=== PATIENT | male | born 1965 | race Caucasian/White ===

== ENCOUNTER → 2017-07-02 | Day surgery (SDC) | payer BC ==
[2017-06-19 15:18] VITALS: Ht 179.1 cm; Wt 115.0 kg
[~2017-07-02] VITALS: Ht 179.1 cm; Wt 115.0 kg
[~2017-07-02] MED LIST: ASPI81TA28 PO; ATOR-26 PO; CARV12.52 PO; CARVEDILOL PO; ENDOSCOPIC MARKER 5 ML SYR ONE; LISI5TAB PO; MIDAZOLAM HCL 1 MG/ML 2ML VIAL ONE; MULTTAB58 PO; MUSCLE MILK PO; PROPOFOL IV EMULSION 10 MG/ML 20 ML VIAL IV ONE; SODIUM CHLORIDE 0.9% 500ML 500 ML IV ONE
--- NOTE | 2017-07-02 13:16 | Endo History and Physical ---
History & Physical Date of Service: Jul 02, 2017. Chief Complaint: for screening colonoscopy Referring Physician: History of Present Illness No complaints. Here for screening colonoscopy. Past Medical History CABG Past Surgical History Hx Cardiac Surgery: Yes (CABG X4 VESSELS) Hx Internal Defibrillator: No Hx Pacemaker: No Hx Abdominal Surgery: No Hx of Implantable Prosthesis: No Hx Post-Op Nausea and Vomiting: No Hx Cancer Surgery: No Hx Thoracic Surgery: No Hx Orthopedic: No Hx Urinary Tract Surgery: No Family History None Social History Smoking Status: Former Smoker Hx Substance Use: No Hx Alcohol Use: Yes (OCCASIONAL) Allergies Coded Allergies: No Known Allergies (Unverified , 07/02/17) Current Medications Reported Home Medications Medications Dose Route/Sig Max Daily Dose Days Date Category Multivitamin (Multiple Vitamin) 1 Tab Tab 1 Tab PO DAILY 06/19/17 Reported Aspirin Ec (Aspirin) 81 Mg Tab 81 Mg PO QAM 06/19/17 Reported Lipitor (Atorvastatin Calcium) 80 Mg Tab 80 Mg PO QPM 06/19/17 Reported [Carvedilol] Unknown Strength Unknown Dose PO BID 06/19/17 Reported Prinivil (Lisinopril) 5 Mg Tab 5 Mg PO QAM 06/19/17 Reported Vital Signs Weight (Kilograms): 115 Height (Feet): 5 Height (Inches): 10.5 Review of Systems Respiratory: No shortness of breath Cardiovascular: No chest pain Physical Exam General Appearance: no apparent distress Respiratory/Chest: Respiratory effort: no dyspnea, good air movement Auscultation: breath sounds normal Cardiovascular: Heart Auscultation: RRR Abdomen: Bowel Sounds: normal Inspection & Palpation: soft, non-distended, no tenderness, guarding & rebound, no masses Liver: no hepatomegaly Assessment and Plan No colonoscopy in past. For screening colonoscopy.
--- NOTE | 2017-07-02 14:07 | Discharge Instructions ---
Endoscopy Patient Instructions Date / Procedure(s) Performed Jul 02, 2017. Colonoscopy Allergy Information Coded Allergies: No Known Allergies (Unverified , 07/02/17) Discharge Date / Findings Jul 02, 2017. Four polyps. Three removed with one clipped. Fourth was large polyp biopsied to see if benign then will determine if repeat colonocopy or surgery needed. Medication Instructions Hold ASA for 2 days then restart. Continue other medications. Provider Instructions Activity Restrictions - No exercising or heavy lifting for 24 hours. - Do not drink alcohol the day of the procedure. - Do not drive a car or operate machinery until the day after the procedure. - Do not make any important decisions or sign important papers in 24 hours after the procedure. Following Day: - Return to full activity which may include returning to work/school. Diet Start your diet with liquids and light foods (jello, soup, juice, toast). Then eat your usual diet if not nauseated. Treatment For Common After Affects For mild abdominal pain, bloating, or excessive gas: - Rest - Eat lightly - Lie on right side Go to ER if significant bleeding, fever, abdominal pain. Follow-Up Information Follow-up with DR LYON as scheduled Await pathology and if benign then large polyp will need repeat colonoscopy with endoscopic mucosal resection. Anesthesia Information What You Should Know You have had a procedure that required some medicine to reduce anxiety and discomfort. This treatment is called moderate sedation. After receiving the treatment, you may be sleepy, but you will be able to breathe on your own. The effects of the treatment may last for several hours. Follow these instructions along with Activity/Diet recommendations noted above: * Do NOT do anything where dizziness or clumsiness would be dangerous. * Rest quietly at home today, then you can be up and about tomorrow. * Have a responsible person stay with you the rest of today. * You may have had an I.V. today. If so, you may take the dressing off later today. Recommendations Call your doctor if: * Trouble breathing * Continuous vomiting for more than 24 hours * Temperature above 101 degrees * Severe abdominal pain or bloating * Pain not relieved by pain medicine ordered * There is increased drainage or redness from any incision * A large amount of rectal bleeding greater than 2-3 tablespoons. (If you had a polyp/s removed or have hemorrhoids, a small amount of blood - from the rectum is to be expected.) * You have any unanswered questions or concerns. IN THE EVENT OF A SERIOUS EMERGENCY, GO TO THE NEAREST EMERGENCY ROOM Your discharge instructions were prepared by provider Joel Crook. Patient Instructions Signature Page Lalo Wilcox Patient (or Guardian) Signature/Date: I have read and understand the instructions given to me by my caregivers. Caregiver/RN/Doctor Signature/Date: The above-named patient and/or guardian has received patient instructions on this date. + Original Patient Signature Page (only) stays with chart. Please make copy for patient.
--- NOTE | 2017-07-02 14:14 | Anesthesiology Progress Note ---
Anesthesia Post Op Note Date & Time Jul 02, 2017 at 14:14 Vital Signs Pain Intensity: 0 Vital Signs Past 12 Hours Date Time Temp Pulse Resp B/P (MAP) Pulse Ox O2 Delivery O2 Flow Rate FiO2 07/02/17 14:07 65 16 136/81 (99) 96 Room Air 07/02/17 13:19 37.0 65 16 167/72 (103) 94 Room Air Notes Mental Status: alert / awake / arousable, participated in evaluation Pt Amnestic to Procedure: Yes Nausea / Vomiting: adequately controlled Pain: adequately controlled Airway Patency, RR, SpO2: stable & adequate BP & HR: stable & adequate Hydration State: stable & adequate Anesthetic Complications: no major complications apparent
[2017-07-02 14:37] VITALS: BP 132/90; PULSE 60; O2SAT 98
--- NOTE | 2017-07-02 15:40 | Progress Note ---
Progress Note Date of Service Jul 02, 2017. Progress Note Pt seen in recovery post procedure with no complaints. Went over procedure results with and patient and repeat need for colo versus surgery depending on path. Also to hold ASA for 48 hours.
--- NOTE | 2017-07-03 00:15 | GI REPORT ---
Procedure Date: 07/02/2017 1:17 PM Procedure: Colonoscopy Indications: Screening for colorectal malignant neoplasm Medicines: Monitored Anesthesia Care Complications: No immediate complications. Estimated Blood Loss: Estimated blood loss: 10 mL requiring treatment with placement of hemostatic clip(s). Procedure: Pre-Anesthesia Assessment: - The risks and benefits of the procedure and the sedation options and risks were discussed with the patient. All questions were answered and informed consent was obtained. - Patient identification and proposed procedure were verified prior to the procedure by the physician, the nurse, the operations lieutenant and the fire protection engineering technician. The procedure was verified in the procedure room. After I obtained informed consent, the scope was passed under direct vision. Throughout the procedure, the patient's blood pressure, pulse, and oxygen saturations were monitored continuously. The On-site loaner was introduced through the anus and advanced to the cecum, identified by appendiceal orifice and ileocecal valve. The colonoscopy was performed without difficulty. The patient tolerated the procedure well. The bowel preparation used was SUPREP. Procedure and risks explained to patient which include but not limited to med reaction, bleeding, perforation, aspiration and missed lesions. Judicious gas insufflation and gas removal done on the way out. The lumen always well visualized when advancing the scope. Washes and suctioning used as needed for good visuzlization of mucosa. Prep was good. Retroflexion in the rectum to look at the distal rectum and anal canal done. Findings: A large polyp was found at the hepatic flexure. The polyp was sessile. Biopsies were taken with a cold forceps for histology. Estimated blood loss was minimal. Area to side was tattooed with an injection of Spot (carbon black). A 6 mm polyp was found in the transverse colon. The polyp was sessile. The polyp was removed with a saline injection-lift technique using a cold snare. Resection and retrieval were complete. Estimated blood loss was minimal. A 5 mm polyp was found at 60 cm proximal to the anus. The polyp was sessile. The polyp was removed with a lift and cut technique using a hot snare. Resection and retrieval were complete. Estimated blood loss was minimal. A 8 mm polyp was found in the rectum. The polyp was sessile. The polyp was removed with a cold snare. Resection and retrieval were complete. Estimated blood loss: 10 mL requiring treatment with placement of 3 hemostatic clip(s with resolution of bleeding. Multiple small and large-mouthed diverticula were found in the sigmoid colon. The exam was otherwise without abnormality on direct and retroflexion views. Impression: - One large polyp at the hepatic flexure. Biopsied. Tattooed. - One 6 mm polyp in the transverse colon, removed using injection-lift and a cold snare. Resected and retrieved. - One 5 mm polyp at 60 cm proximal to the anus, removed using lift and cut and a hot snare. Resected and retrieved. - One 8 mm polyp in the rectum, removed with a cold snare. Resected and retrieved. - Diverticulosis in the sigmoid colon. - The examination was otherwise normal on direct and retroflexion views. Recommendation: - Discharge patient to home (ambulatory). - Await pathology results. - If path benign will need endoscopic mucosal resection of the hepatic flexure polyp. Joel Crook M.D. Joel Crook MD 07/02/2017 2:15:43 PM This report has been signed electronically. Note Initiated On: 07/02/2017 1:17 PM I attest to the content of the Intraoperative Record and orders documented therein, exceptions below
== END | disposition home or self-care (01) ==
LOC: C.GI 12:23
PROVIDERS: ATTEND Internal Medicine Gastroenterology
DX: Z12.11 Encounter for screening for malignant neoplasm of colon (principal); D12.3 Benign neoplasm of transverse colon; D12.9 Benign neoplasm of anus and anal canal; D12.8 Benign neoplasm of rectum; K57.30 Diverticulosis of large intestine without perforation or abscess without bleeding

== ENCOUNTER → 2017-08-25 | Day surgery (SDC) | payer BC ==
[2017-08-12 13:11] VITALS: Ht 179.1 cm; Wt 112.7 kg
[~2017-08-25] VITALS: Ht 179.1 cm; Wt 112.7 kg
[~2017-08-25] MED LIST changes: +ATROPINE SULFATE 0.1 MG/ML 5ML SYR IV PRN; -CARVEDILOL PO; -ENDOSCOPIC MARKER 5 ML SYR ONE; +EpHEDrine SULFATE INJ 50 MG/ML AMP IV PRN; +FENTANYL CITRATE INJ 50 MCG/1 ML 2 ML VIAL ONE; +LIDOCAINE HCL 2% 2 ML VIAL (20MG/ML) ONE; +METHYLENE BLUE 0.5% 10 ML VIAL ONE
--- NOTE | 2017-08-25 14:45 | Endo History and Physical ---
History & Physical Date of Service: Aug 25, 2017. Chief Complaint: Colon polyps with EMR Referring Physician: Dr. Og Jones History of Present Illness hepatic flex polyp for EMR Past Medical History CABG Past Surgical History Hx Cardiac Surgery: Yes (CABG X4 VESSELS) Hx Internal Defibrillator: No Hx Pacemaker: No Hx Abdominal Surgery: No Hx of Implantable Prosthesis: No Hx Post-Op Nausea and Vomiting: No Hx Cancer Surgery: No Hx Thoracic Surgery: No Hx Orthopedic: No Hx Urinary Tract Surgery: No Family History None Social History Smoking Status: Former Smoker Hx Substance Use: No Hx Alcohol Use: Yes (OCCASIONAL) Allergies Coded Allergies: No Known Allergies (Verified , 08/25/17) Current Medications Reported Home Medications Medications Dose Route/Sig Max Daily Dose Days Date Category Coreg (Carvedilol) 12.5 Mg Tab 12.5 Mg PO BID 08/12/17 Reported [Muscle Milk] 1 Dose PO DIRECTED PRN 08/12/17 Reported Multivitamin (Multiple Vitamin) 1 Tab Tab 1 Tab PO DAILY 06/19/17 Reported Aspirin Ec (Aspirin) 81 Mg Tab 81 Mg PO QAM 06/19/17 Reported Lipitor (Atorvastatin Calcium) 80 Mg Tab 80 Mg PO QPM 06/19/17 Reported Prinivil (Lisinopril) 5 Mg Tab 5 Mg PO QAM 06/19/17 Reported Vital Signs Weight (Kilograms): 112.73 Height (Feet): 5 Height (Inches): 10.5 Date Time Temp Pulse Resp B/P (MAP) Pulse Ox O2 Delivery O2 Flow Rate FiO2 08/25/17 14:30 36.4 62 18 113/79 (90) 96 Room Air Physical Exam General Appearance: WD/WN, no apparent distress Respiratory/Chest: Auscultation: breath sounds normal Cardiovascular: Heart Auscultation: RRR Abdomen: Bowel Sounds: normal Inspection & Palpation: soft, non-distended, no tenderness, guarding & rebound Assessment and Plan colonoscopy with EMR for polyp removal
--- NOTE | 2017-08-25 15:58 | Discharge Instructions ---
Endoscopy Patient Instructions Date / Procedure(s) Performed Aug 25, 2017. Colonoscopy Allergy Information Coded Allergies: No Known Allergies (Verified , 08/25/17) Discharge Date / Findings Aug 25, 2017. polyps removed by EMR Medication Instructions Stopped Medication(s): Patient was told to take his bp meds this am. Restart Stopped Medication(s): Reported Home Medications Medications Dose Route/Sig Max Daily Dose Days Date Category Coreg (Carvedilol) 12.5 Mg Tab 12.5 Mg PO BID 08/12/17 Reported [Muscle Milk] 1 Dose PO DIRECTED PRN 08/12/17 Reported Multivitamin (Multiple Vitamin) 1 Tab Tab 1 Tab PO DAILY 06/19/17 Reported Aspirin Ec (Aspirin) 81 Mg Tab 81 Mg PO QAM 06/19/17 Reported Lipitor (Atorvastatin Calcium) 80 Mg Tab 80 Mg PO QPM 06/19/17 Reported Prinivil (Lisinopril) 5 Mg Tab 5 Mg PO QAM 06/19/17 Reported Reported Home Medications Medications Dose Route/Sig Max Daily Dose Days Date Category Coreg (Carvedilol) 12.5 Mg Tab 12.5 Mg PO BID 08/12/17 Reported [Muscle Milk] 1 Dose PO DIRECTED PRN 08/12/17 Reported Multivitamin (Multiple Vitamin) 1 Tab Tab 1 Tab PO DAILY 06/19/17 Reported Aspirin Ec (Aspirin) 81 Mg Tab 81 Mg PO QAM 06/19/17 Reported Lipitor (Atorvastatin Calcium) 80 Mg Tab 80 Mg PO QPM 06/19/17 Reported Prinivil (Lisinopril) 5 Mg Tab 5 Mg PO QAM 06/19/17 Reported Provider Instructions Activity Restrictions - No exercising or heavy lifting for 24 hours. - Do not drink alcohol the day of the procedure. - Do not drive a car or operate machinery until the day after the procedure. - Do not make any important decisions or sign important papers in 24 hours after the procedure. Following Day: - Return to full activity which may include returning to work/school. Diet Start your diet with liquids and light foods (jello, soup, juice, toast). Then eat your usual diet if not nauseated. Treatment For Common After Affects For mild abdominal pain, bloating, or excessive gas: - Rest - Eat lightly - Lie on right side Follow-Up Information Follow-up with Dr. Og Jones as scheduled Anesthesia Information What You Should Know You have had a procedure that required some medicine to reduce anxiety and discomfort. This treatment is called moderate sedation. After receiving the treatment, you may be sleepy, but you will be able to breathe on your own. The effects of the treatment may last for several hours. Follow these instructions along with Activity/Diet recommendations noted above: * Do NOT do anything where dizziness or clumsiness would be dangerous. * Rest quietly at home today, then you can be up and about tomorrow. * Have a responsible person stay with you the rest of today. * You may have had an I.V. today. If so, you may take the dressing off later today. Recommendations Call your doctor if: * Trouble breathing * Continuous vomiting for more than 24 hours * Temperature above 101 degrees * Severe abdominal pain or bloating * Pain not relieved by pain medicine ordered * There is increased drainage or redness from any incision * A large amount of rectal bleeding greater than 2-3 tablespoons. (If you had a polyp/s removed or have hemorrhoids, a small amount of blood - from the rectum is to be expected.) * You have any unanswered questions or concerns. IN THE EVENT OF A SERIOUS EMERGENCY, GO TO THE NEAREST EMERGENCY ROOM Your discharge instructions were prepared by provider Mario Agrawal. Patient Instructions Signature Page Lalo Short Patient (or Guardian) Signature/Date: I have read and understand the instructions given to me by my caregivers. Caregiver/RN/Doctor Signature/Date: The above-named patient and/or guardian has received patient instructions on this date. + Original Patient Signature Page (only) stays with chart. Please make copy for patient.
--- NOTE | 2017-08-25 16:05 | Anesthesiology Progress Note ---
Anesthesia Post Op Note Date & Time Aug 25, 2017 at 16:05 Vital Signs Pain Intensity: 0 Vital Signs Past 12 Hours Date Time Temp Pulse Resp B/P (MAP) Pulse Ox O2 Delivery O2 Flow Rate FiO2 08/25/17 14:30 36.4 62 18 113/79 (90) 96 Room Air Notes Mental Status: alert / awake / arousable, participated in evaluation Pt Amnestic to Procedure: Yes Nausea / Vomiting: adequately controlled Pain: adequately controlled Airway Patency, RR, SpO2: stable & adequate BP & HR: stable & adequate Hydration State: stable & adequate Anesthetic Complications: no major complications apparent
--- NOTE | 2017-08-25 16:12 | GI REPORT ---
Procedure Date: 08/25/2017 2:28 PM Procedure: Colonoscopy Indications: Therapeutic procedure for colon polyps Medicines: Propofol per Anesthesia Complications: No immediate complications. Estimated blood loss: None. Estimated Blood Loss: Estimated blood loss: none. Procedure: Pre-Anesthesia Assessment: - Prior to the procedure, a History and Physical was performed, and patient medications and allergies were reviewed. The patient's tolerance of previous anesthesia was also reviewed. The risks and benefits of the procedure and the sedation options and risks were discussed with the patient. All questions were answered, and informed consent was obtained. Prior Anticoagulants: The patient has taken no previous anticoagulant or antiplatelet agents. ASA Grade Assessment: II - A patient with mild systemic disease. After reviewing the risks and benefits, the patient was deemed in satisfactory condition to undergo the procedure. After I obtained informed consent, the scope was passed under direct vision. Throughout the procedure, the patient's blood pressure, pulse, and oxygen saturations were monitored continuously. The scope was introduced through the anus and advanced to the terminal ileum, with identification of the appendiceal orifice and IC valve. The colonoscopy was performed without difficulty. The patient tolerated the procedure well. The quality of the bowel preparation was good. Findings: The perianal and digital rectal examinations were normal. Pertinent negatives include normal sphincter tone, no palpable rectal lesions and no anal lesion or abnormality was detected. A 25 mm polyp was found at the hepatic flexure. The polyp was sessile. Area was successfully injected with 35 ml saline with methylene blue for a lift polypectomy. The polyp was removed with a piecemeal technique using a hot snare. Resection and retrieval were complete. To prevent bleeding after mucosal resection, five hemostatic clips were successfully placed (MR conditional). There was no bleeding during, and at the end, of the procedure. A 10 mm polyp was found at the hepatic flexure. The polyp was sessile. Area was successfully injected with 5 mL saline with methylene blue for a lift polypectomy. The polyp was removed with a hot snare. Resection and retrieval were complete. Verification of patient identification for the specimen was done by the physician and certification technician using the patient's name and medical record number. A foreign body was found in the rectum. The retroflexed view of the distal rectum and anal verge was normal and showed no anal or rectal abnormalities. The exam was otherwise without abnormality. Impression: - One 25 mm polyp at the hepatic flexure, removed piecemeal using a hot snare. Resected and retrieved. Injected. Clips (MR conditional) were placed. - One 10 mm polyp at the hepatic flexure, removed with a hot snare. Resected and retrieved. Injected. - Foreign body in the rectum. - The distal rectum and anal verge are normal on retroflexion view. - The examination was otherwise normal. Recommendation: - Discharge patient to home (ambulatory). - Resume regular diet. - Continue present medications. - Await pathology results. - Repeat colonoscopy in 4-6 months depending on path for surveillance based on pathology results. MD Mario Rivas MD 08/25/2017 4:11:39 PM This report has been signed electronically. Note Initiated On: 08/25/2017 2:28 PM I attest to the content of the Intraoperative Record and orders documented therein, exceptions below
[2017-08-25 16:28] VITALS: BP 132/94; PULSE 58; O2SAT 100
== END | disposition home or self-care (01) ==
LOC: C.GI 14:04
PROVIDERS: ATTEND Internal Medicine Gastroenterology
DX: D12.3 Benign neoplasm of transverse colon (principal); T18.5XXA Foreign body in anus and rectum, initial encounter; X58.XXXA Exposure to other specified factors, initial encounter; I25.10 Atherosclerotic heart disease of native coronary artery without angina pectoris; Z95.1 Presence of aortocoronary bypass graft; Z87.891 Personal history of nicotine dependence; Z79.82 Long term (current) use of aspirin; Z79.899 Other long term (current) drug therapy

== ENCOUNTER 2022-12-19 14:52 | Inpatient (IN) ==
--- NOTE | 2022-12-19 15:36 | XRay Report ---
XR chest 2V PA/lateral HISTORY: 57 years-old Male Chest pain, nonspecific acute chest pain COMPARISON: None TECHNIQUE: PA and lateral views of the chest FINDINGS: Cardiac silhouette is enlarged. Prior median sternotomy. No pneumothorax, large pleural effusion or o vert pulmonary edema. Mild blunting of the costophrenic angles. Hyperinflation with diaphragmatic fla ttening. Degenerative changes of the shoulders and spine. IMPRESSION: Cardiomegaly without acute process. ACT 112: Negative or not required by law. The above report was generated using voice recognition software. It may contain grammatical, syntax o r spelling errors. Electronically signed by: Mu Olivera M.D. 12/19/2022 3:34 PM
[2022-12-19] MEDS ORDERED: SODIUM CHLORIDE 0.9% 500 ML IV ONE (16:01)
[2022-12-19 16:29] LABS: Basophils # (auto) 0.04 K/uL (0-0.2); Basophils % (auto) 0.5 %; Eosinophils # (auto) 0.18 K/uL (0-0.50); Eosinophils % (auto) 2.4 %; Hemoglobin 14.8 g/dl (14.0-18.0); Immature Granulocytes # (auto) 0.02 K/uL (0.01-0.20); Immature Granulocytes % (auto) 0.3 %; Lymphocytes # (auto) 2.27 K/uL (1.2-3.4); Lymphocytes % (auto) 30.3 %; Mean Corpuscular Hgb Conc 35.2 g/dL (32.0-36.0); Mean Corpuscular Volume 85.2 fL (80.0-100.0); Mean Platelet Volume 10.1 fL (9.4-12.4); Monocytes # (auto) 0.77 K/uL (0.11-0.59); Monocytes % (auto) 10.3 %; Neutrophils # (auto) 4.22 K/uL (1.40-6.50); Neutrophils % (auto) 56.2 %; Platelet Count 189 K/uL (130-400); RDW Coefficient of Variation 13.5 % (11.5-14.5); RDW Standard Deviation 41.3 fL (36.4-46.3); Red Blood Count 4.93 M/uL (4.70-6.10)
[2022-12-19 16:35] LABS: Alanine Aminotransferase 18 U/L (7-52); Albumin Globulin Ratio 1.3 (0.9-2); Albumin Level 4.3 gm/dl (3.4-5.0); Alkaline Phosphatase 88 U/L (34-104); Anion Gap 5 (3-11); Aspartate Aminotransferase 19 U/L (13-39); BUN Creatinine Ratio 18.3 (10-20); Bilirubin,Total 0.7 mg/dl (0.2-1.0); Blood Urea Nitrogen 24 mg/dl (6-23); Calcium 9.4 mg/dl (8.5-10.1); Carbon Dioxide 28 mmol/L (21-32); Chloride 105 mmol/L (98-107); Est GFR (Non-African American) 60.4 ml/min; Globulin 3.4 gm/dl (2.5-4.0); Glucose 108 mg/dl (70-99(Fasting)); Magnesium 2.2 mg/dl (1.7-2.4); Phosphorus 4.2 mg/dl (2.5-4.9); Potassium 4.5 mmol/L (3.5-5.1); Sodium 138 mmol/L (136-145); Total Protein 7.7 gm/dl (6.0-8.3)
[2022-12-19 16:42] LABS: Troponin I High Sensitivity 25.4 pg/ml (0-20)
[2022-12-19 16:44] LABS: Partial Thromboplastin Ratio 0.9; Partial Thromboplastin Time 26.1 Seconds (21.0-31.0); Prothrombin Time 10.7 Seconds (9.0-12.0)
[2022-12-19] MEDS ORDERED: OPTIRAY 320 500ml IV ONE (17:12)
--- NOTE | 2022-12-19 17:47 | CT Scan Report ---
CHEST CTA for PULMONARY ARTERIES CT DOSE: 675.60 mGycm HISTORY: right sided cp, r/o PE TECHNIQUE: Multiaxial CT images of the chest were performed following the intravenous administration of contrast to evaluate the pulmonary arteries. Maximal intensity projection images were also obtaine d. A dose lowering technique was utilized adhering to the principles of ALARA. COMPARISON STUDY: None. FINDINGS: Limited views of the upper abdomen demonstrate a normal liver and spleen. No mediastinal or hilar lymphadenopathy. No pleural or pericardial effusions. The heart is mildly enlarged. Normal eso phagus. Normal caliber thoracic aorta with no evidence for a dissection. No filling defects within th e pulmonary arteries to suggest a pulmonary embolus. There are poststernotomy changes. No acute fract ures identified. No pneumothorax. The central airways are patent. Calcified left hilar lymph node is noted. Peripheral scarlike densities are noted within the right lung base. Tiny subpleural nodular de nsities along the right major fissure are likely benign. No suspicious pulmonary nodules identified. No focal lung consolidations to suggest a pneumonia. IMPRESSION: 1. No evidence for a pulmonary embolus. 2. No focal lung consolidations to suggest a pneumonia. 3. Peripheral scarlike densities seen within the right lung base. ACT 112: Negative or not required by law. Electronically signed by: Micah Chappell M.D. 12/19/2022 5:45 PM
[2022-12-19] MEDS ORDERED: METOPROLOL TARTRATE 1 MG/ML VIAL IV STA ×3 (18:33→19:10)
--- NOTE | 2022-12-19 18:59 | History & Physical Report ---
Date of Service December 19, 2022 Assessment & Plan (1) Atrial flutter with rapid ventricular response: Plan: Possible exacerbated due to food poisoning illness over the weekend which appears to have self resolved No significant improvement after metoprolol 5 mg IV x3 We will increase his usual carvedilol to 12.5 mg p.o. twice daily Start diltiazem IV drip with 20 mg IV bolus [id number] - 3, start heparin IV drip TTE TSH Consult cardiology, NPO after midnight in case he requires EVELYN cardioversion We will see if his chest pain is due to this however certainly has musculoskeletal elements to this in addition (2) Cubital tunnel syndrome of both upper extremities: Plan: Very well-defined ulnar distribution nerve entrapment at his elbow described by the patient If resolves with rate controlling his atrial flutter perhaps it is due to this however if does not resolve recommend nerve conduction studies as an outpatient (3) Coronary artery disease: Plan: s/p CABG Continue aspirin, carvedilol, lisinopril, atorvastatin (4) Hypertension: Plan: Continue carvedilol at increased dose as above, lisinopril 10 mg p.o. daily Lasix as above Diltiazem as above (5) Sleep apnea: Plan: CPAP HS (6) Hx of psoriasis: Plan: Managed with Skyrizi (7) Hyperlipidemia: Plan: Continue atorvastatin Plan VTE Prophylaxis - heparin IV Diet - heart healthy Disposition - admit to PCU Admission and Anticipated Discharge Date Admission Date: December 19, 2022 History of Present Illness Chief Complaint: Shortness of breath Primary Care Provider: Rupinder Knowles Lalo Wilcox is a 57 year old male with coronary artery disease with history of CABG who presents to the ER with 3 week history of intermittent right-sided chest pain. He reports his chest pain started 3 weeks ago lasting for the entire day but better the following day, no worse on exertion, worse on certain movements. It has occurred intermittently 4 or 5 times since then, again lasting for hours. Characteristic of occasional spasms. No diaphoresis or nausea. He reports associated shortness of breath over the last 3 weeks although also notes worsening shortness of breath on exertion over the last year especially while walking upstairs. He also notes an odd sensation of neck swelling and having a hard time breathing over the weekend with associated arm numbness. This improved after a couple of hours and he managed to go to sleep and believes it brought on by food he had eaten previous that day. This sensation has now completely resolved. He also describes bilateral tingling in both extremities and a ulnar nerve distal to his elbow. Never had this sensation before but also appears to be separate from recent chest pain. His convinced him to go to his PCP office today and EKG in the office was concerning for sinus tachycardia with PVCs and possible STEMI therefore he was sent to the ER. In the ER EKG and telemetry is more consistent with an atrial flutter. He was given x1 dose of metoprolol 5 mg IV prior to being seen without significant improvement in his heart rate. Allergies Allergy/AdvReac Type Severity Reaction Status Date / Time No Known Allergies Allergy Verified 12/19/22 18:01 Home Medications Medication Instructions Recorded Confirmed Type aspirin 81 mg tablet 81 mg PO QAM 11/14/22 12/19/22 History atorvastatin 80 mg tablet 80 mg PO HS 11/14/22 12/19/22 History betamethasone dipropionate 0.05 % 1 applic topical UD PRN psoriasis 11/14/22 12/19/22 History topical ointment carvedilol 6.25 mg tablet 6.25 mg PO BID 11/14/22 12/19/22 History lisinopril 10 mg tablet 10 mg PO QAM 11/14/22 12/19/22 History mupirocin 2 % topical ointment 1 applic topical UD PRN psoriasis 11/14/22 12/19/22 History risankizumab-rzaa 150 mg/mL 150 mg subcut Q90D 11/14/22 12/19/22 History subcutaneous syringe (Skyrizi) ascorbic acid (vitamin C) 100 mg 100 mg PO 3XWK 12/19/22 12/19/22 History tablet furosemide 20 mg tablet 20 mg PO DAILY PRN Shortness Of 12/19/22 12/19/22 History Breath multivitamin 1 tab PO DAILY 12/19/22 12/19/22 History zinc gluconate 100 mg tablet 100 mg PO DAILY 12/19/22 12/19/22 History Past Med/Surg History Medical History (Updated 12/19/22 @ 22:52 by Bernard Martinez MD) Hx of psoriasis Hyperlipidemia Hypertension Myocardial Infarction 9 years ago, taken to hospital in [place]; f/u dr cunningham, [facility] Sleep apnea cpap Surgical History Hx of CABG 9 years ago, quadruple bypass, [place] near the [facility]; f/u marcial whaley Hx of colonoscopy Social History Smoking Status: Former smoker Second Hand Exposure: No; Do You Dip or Chew Tobacco: No; Hx Alcohol Use: Yes Alcohol type: beer Hx Substance Use: No Preferred Language: Macanese Communication Ability: Effective Manufacturing Manager Required: No Beliefs That Will Affect Care: None Current Living Situation: Spouse Other Information That Helps Us Care for You: No Feels Safe at Home: Yes Safety Concerns: Feels Safe At This Time Assistive Devices: Glasses Review of Systems Review of Systems: All systems reviewed & are unremarkable except as noted in HPI & below 2 days ago having diarrhea, lasted for 2 days, 4-5 times a day, watery. Tu-Fri. Resolved today. Physical Exam Constitutional: WD/WN, vitals as above Respiratory: normal respiratory effort, lungs clear to auscultation Cardiovascular: Rate/Rhythm: regular rhythm and + tachycardic Heart Sounds: no murmur Extremities: normal capillary refill and + pedal edema (1+ b/l edema); no calf tenderness Gastrointestinal (Abdomen): normal bowel sounds, soft, nontender, no hepatosplenomegaly Skin: no rashes, warm and dry Neurologic: moves all extremities and awake; not confused Motor/Sensory: + sensory deficit (Mild bilateral ulnar distribution numbness from the wrist) Psychiatric: A+Ox3, euthymic affect Results & Data Results & Data ([facility]) Vital Signs (Past 12 Hours) Vital Signs Temp Pulse Pulse Resp BP BP Pulse Ox 12/19/22 18:00 143 H 20 178/117 H 96 12/19/22 15:05 96 12/19/22 18:39 132 H 178/117 H 12/19/22 16:47 141 H 20 159/124 H 96 12/19/22 16:47 12/19/22 14:58 36.3 C L 92 H 20 135/102 H 96 O2 Del Method 12/19/22 18:00 Room Air 12/19/22 15:05 Room Air 12/19/22 18:39 12/19/22 16:47 Room Air 12/19/22 16:47 Room Air 12/19/22 14:58 Room Air Laboratory Results Abnormal lab results 12/19/22 12/19/22 12/19/22 Range/Units 15:46 15:46 15:46 [place] # (Auto) 0.77 H (0.11-0.59) K/uL BUN 24 H (6-23) mg/dl Glucose 108 H (70-99(Fasting)) mg/dl Troponin I High Sens 25.4 H (0-20) pg/ml B-Natriuretic Peptide 472 H (0-100) pg/ml Diagnostic Findings XR chest 2V PA/lateral HISTORY: 57 years-old Male Chest pain, nonspecific acute chest pain COMPARISON: None TECHNIQUE: PA and lateral views of the chest FINDINGS: Cardiac silhouette is enlarged. Prior median sternotomy. No pneumothorax, large pleural effusion or overt pulmonary edema. Mild blunting of the costophrenic angles. Hyperinflation with diaphragmatic flattening. Degenerative changes of the shoulders and spine. IMPRESSION: Cardiomegaly without acute process. CHEST CTA for PULMONARY ARTERIES CT DOSE: 675.60 mGycm HISTORY: right sided cp, r/o PE TECHNIQUE: Multiaxial CT images of the chest were performed following the intravenous administration of contrast to evaluate the pulmonary arteries. Maximal intensity projection images were also obtained. A dose lowering technique was utilized adhering to the principles of ALARA. COMPARISON STUDY: None. FINDINGS: Limited views of the upper abdomen demonstrate a normal liver and spleen. No mediastinal or hilar lymphadenopathy. No pleural or pericardial effusions. The heart is mildly enlarged. Normal esophagus. Normal caliber thoracic aorta with no evidence for a dissection. No filling defects within the pulmonary arteries to suggest a pulmonary embolus. There are poststernotomy changes. No acute fractures identified. No pneumothorax. The central airways are patent. Calcified left hilar lymph node is noted. Peripheral scarlike densities are noted within the right lung base. Tiny subpleural nodular densities along the right major fissure are likely benign. No suspicious pulmonary nodules identified. No focal lung consolidations to suggest a pneumonia. IMPRESSION: 1. No evidence for a pulmonary embolus. 2. No focal lung consolidations to suggest a pneumonia. 3. Peripheral scarlike densities seen within the right lung base. Medications Administered ER medications given: Metoprolol 5 mg IV x2 Normal saline 500 mL bolus ECG Indication: SOB/dyspnea Rate (beats per minute): 148 Rhythm: atrial flutter Findings: + RBBB (Incomplete) Comparison ECG Date: no prior available Code Status & VTE Plan Code Status Full VTE Prophylaxis Plan VTE Prophylaxis will be ordered: Yes PG Care Time/CCT Total # of Minutes Spent Total Time Spent with Patient: Total time spent is greater than 50% in coordination of care (as documented) at patient's floor/unit and/or counseling patient: Coding Level of Care Code 73328 INT INP/OBS CARE 3/75MIN Diagnoses Atrial flutter with rapid ventricular response I48.92 Cubital tunnel syndrome of both upper extremities G56.23 Coronary artery disease I25.10 Hypertension I10 Sleep apnea G47.30 Hx of psoriasis Z87.2 Hyperlipidemia E78.5
--- NOTE | 2022-12-19 19:17 | Emergency Department Note ---
Impression & Plan Atrial flutter with rapid ventricular response, New onset atrial flutter, Elevated troponin, Coronary artery disease, Hypertension ED Provider Note NAME: PIPO LASSITER AGE: 57 SEX: M ARRIVES VIA: Walk-In INFORMANT: Patient ED PROVIDER(S): Jun Hopper MD CHIEF COMPLAINT: Palpitations, referred. PLAN: Disposition: Admit MEDICAL DECISION MAKING: The patient is a pleasant 57-year-old gentleman with a past medical history of CAD with history of an [place] remotely, hypertension, hyperlipidemia who presents to the emergency department, by his via walk-in, referred from his PCPs office for evaluation of ongoing shortness of breath , Intermittent palpitations, tingling in his hands and episode of right-sided rib pain last week. The patient reports he is significantly active as he works at [employer] and frequently performs heavy lifting. He denies having pattern of chest pain with exertion. He reports he sometimes feels short of breath with exertion. He reports a couple of days ago he had an episode where he suddenly felt palpitations and lightheadedness that resolved after approximately 20 minutes. He denies any recent fevers, chills, cough congestion, GI or symptoms. EKG demonstrates suspected atrial flutter in the 140s with right bundle branch block and intermittent PVC no overt ST elevation or depression. Chest x-ray negative for acute cardiopulmonary process. WBC, H/H and platelets within normal limits. Chemistry without metabolic acidosis. Electrolytes LFTs without significant abnormality. High-sensitivity troponin 25.4 and BNP 470, nonspecific and likely related to the patient's tachycardia and suspected new diagnosis of atrial flutter. CTA of the chest was performed and was negative for PE or acute process otherwise. COVID-19, RNA, NAAT test was negative. Upon evaluation the patient's heart rate was unchanged following 500 cc of normal saline. Repeat EKGs were performed and further demonstrates atrial flutter with variable AV block. Given the patient's symptoms, history of CAD with new onset a flutter they did agree with plan for admission for further management. IV Lopressor ordered for further rate control. Decision for anticoagulation per admitting team. Case was d/w Dr. Martinez, [facility] hospitalist who will evaluate the patient for admission. Triage Nursing notes reviewed and agree them. Prior/outside medical records reviewed Vital Signs: reviewed Differential diagnosis: Premature contractions, electrolyte abnormality, cardiac dysrhythmia, thyroid dysfunction, pulmonary embolism, infection, gastrointestinal, as well as other pathologies. ER treatment provided: See below. Diagnostics interpreted by me: ECG: Atrial flutter with rapid ventricular response, 148 bpm, PVCs. Incomplete right bundle branch block, nonspecific ST and T wave abnormality, no overt ST elevation or depression, QTc 379, QRS 98. Cardiac Monitoring: An order for continuous cardiac monitoring was placed and demonstrated Atrial flutter with rapid ventricular response, 148 bpm, PVCs. Laboratory studies: See below Imaging studies: See below Consultation(s): Case was d/w Dr. Martinez, [facility] hospitalist who will evaluate the patient for admission. HPI: The patient is a pleasant 57-year-old gentleman with a past medical history of CAD with history of an NJ remotely, hypertension, hyperlipidemia who presents to the emergency department, by his via walk-in, referred from his PCPs office for evaluation of ongoing shortness of breath , Intermittent palpitations, tingling in his hands and episode of right-sided rib pain last we ek. The patient reports he is significantly active as he works at [employer] and frequently performs heavy lifting. He denies having pattern of chest pain with exertion. He reports he sometimes feels short of breath with exertion. He reports a couple of days ago he had an episode where he suddenly felt palpitations and lightheadedness that resolved after approximately 20 minutes. He denies any recent fevers, chills, cough congestion, GI or symptoms. ROS: See above HPI for pertinent positives & negatives. A total of 10 systems reviewed and were otherwise negative. VITALS:See Below PHYSICAL EXAMINATION: GENERAL: Awake, alert, well-appearing, in no distress, BMI 46. HENT: Normocephalic, atraumatic. Oropharynx unremarkable. EYES: Normal conjunctiva. Sclera non-icteric. NECK: Supple. No nuchal rigidity. FROM. No JVD. RESPIRATORY: Clear to auscultation. CARDIAC: Tachycardic rate, irregulgar rhythm. Extremities warm and well perfused. Pulses equal. ABDOMEN: Soft, non-distended. No tenderness to palpation. No rebound or guarding. No masses. RECTAL: Deferred. MUSCULOSKELETAL: Chest examination reveals no tenderness. The back is symmetrical on inspection without obvious abnormality. There is no CVA tende rness to palpation. No joint edema. LOWER EXTREMITIES: Calves are equal size bilaterally and non-tender. No edema. No discoloration. NEURO: Normal sensorium. No sensory or motor deficits noted. SKIN: No rash or jaundice noted. ED COURSE: Critical Care: I have personally spent greater than 35 minutes of critical care time in the direct management of this patient. This includes bedside care, interpretation of diagnostic studies, and testing, discussion with consultants, patient, and family members, and other required patient management activities. This 35 minutes is in excess of all separately billable procedures. Jun Hopper MD Past Med/Surg History Medical History (Updated 12/19/22 @ 19:38 by Bernard Martinez MD) Hx of psoriasis Hyperlipidemia Hypertension Myocardial Infarction 9 years ago, taken to hospital in [place]; f/u dr cunningham, [facility] Sleep apnea cpap Surgical History Hx of CABG 9 years ago, quadruple bypass, OR near the [facility]; f/u dr cunningham, [facility] Hx of colonoscopy Social History Smoking Status: Former smoker Second Hand Exposure: Yes; Hx Alcohol Use: Yes Alcohol type: beer Hx Substance Use: No Preferred Language: Icelandic Communication Ability: Effective Vessel Engineer Required: No Beliefs That Will Affect Care: None Current Living Situation: Spouse Feels Safe at Home: Yes Assistive Devices: CPAP and Glasses Allergies Allergies Allergy/AdvReac Type Severity Reaction Status Date / Time No Known Allergies Allergy Verified 12/19/22 18:01 Home Meds Home Medications Medication Instructions Recorded Confirmed aspirin 81 mg tablet 81 mg PO QAM 11/14/22 12/19/22 atorvastatin 80 mg tablet 80 mg PO HS 11/14/22 12/19/22 betamethasone dipropionate 0.05 % 1 applic topical UD PRN psoriasis 11/14/22 12/19/22 topical ointment carvedilol 6.25 mg tablet 6.25 mg PO BID 11/14/22 12/19/22 lisinopril 10 mg tablet 10 mg PO QAM 11/14/22 12/19/22 mupirocin 2 % topical ointment 1 applic topical UD PRN psoriasis 11/14/22 12/19/22 risankizumab-rzaa 150 mg/mL 150 mg subcut Q90D 11/14/22 12/19/22 subcutaneous syringe (Skyrizi) ascorbic acid (vitamin C) 100 mg 100 mg PO 3XWK 12/19/22 12/19/22 tablet furosemide 20 mg tablet 20 mg PO DAILY PRN Shortness Of 12/19/22 12/19/22 Breath multivitamin 1 tab PO DAILY 12/19/22 12/19/22 zinc gluconate 100 mg tablet 100 mg PO DAILY 12/19/22 12/19/22 Results & Data (ED) Vital Signs Vital Signs - 24 hr 12/19/22 14:58 12/19/22 16:47 12/19/22 16:47 Temperature 36.3 C L Temperature Source Temporal Artery Scan Pulse Rate 92 H Pulse Rate [Apical] 141 H Pulse Rhythm [Apical] Regular Pulse Strength [Apical] Normal Respiratory Rate 20 20 Respiratory Effort / Characteristics Non-Labored Respiratory Depth Normal Normal Respiratory Pattern Regular Blood Pressure 135/102 H Blood Pressure [Right Arm] 159/124 H Blood Pressure Mean 113 Blood Pressure Mean [Right Arm] 135 Blood Pressure Position Sitting Blood Pressure Position [Right Arm] Lying Pulse Oximetry 96 96 Oxygen Delivery Method Room Air Room Air Room Air Sepsis Recent Fever Within 48 Hours No Sepsis New/Unexplained Change in Mental Status No Sepsis Action Taken by Nursing No Action Required 12/19/22 18:39 12/19/22 15:05 12/19/22 18:00 Temperature Temperature Source Pulse Rate 132 H Pulse Rate [Apical] 143 H Pulse Rhythm [Apical] Regular Pulse Strength [Apical] Normal Respiratory Rate 20 Respiratory Effort / Characteristics Non-Labored Respiratory Depth Normal Respiratory Pattern Regular Blood Pressure 178/117 H Blood Pressure [Right Arm] 178/117 H Blood Pressure Mean Blood Pressure Mean [Right Arm] 137 Blood Pressure Position Blood Pressure Position [Right Arm] Lying Pulse Oximetry 96 96 Oxygen Delivery Method Room Air Room Air Sepsis Recent Fever Within 48 Hours Sepsis New/Unexplained Change in Mental Status Sepsis Action Taken by Nursing 12/19/22 19:05 12/19/22 19:15 12/19/22 20:00 Temperature Temperature Source Pulse Rate 124 H 114 H Pulse Rate [Apical] 83 Pulse Rhythm [Apical] Irregular Pulse Strength [Apical] Normal Respiratory Rate 20 Respiratory Effort / Characteristics Non-Labored Respiratory Depth Normal Respiratory Pattern Regular Blood Pressure 168/115 H 170/124 H Blood Pressure [Right Arm] 200/137 H Blood Pressure Mean Blood Pressure Mean [Right Arm] 158 Blood Pressure Position Blood Pressure Position [Right Arm] Lying Pulse Oximetry 96 Oxygen Delivery Method Room Air Sepsis Recent Fever Within 48 Hours Sepsis New/Unexplained Change in Mental Status Sepsis Action Taken by Nursing Laboratory Data Attestation: I reviewed the patient's lab results. 12/19/22 15:46 12/19/22 15:46 Lab Results 12/19/22 12/19/22 12/19/22 Range/Units 15:46 15:46 15:46 WBC 7.50 (4.8-10.8) K/ul RBC 4.93 (4.70-6.10) M/uL Hgb 14.8 (14.0-18.0) g/dl Hct 42.0 (42.0-52.0) % MCV 85.2 (80.0-100.0) fL MCH 30.0 (25.0-34.0) pg MCHC 35.2 (32.0-36.0) g/dL RDW Std Deviation 41.3 (36.4-46.3) fL RDW Coeff of Deborah 13.5 (11.5-14.5) % Plt Count 189 (130-400) K/uL MPV 10.1 (9.4-12.4) fL Immature Gran % (Auto) 0.3 % Neut % (Auto) 56.2 % Lymph % (Auto) 30.3 % Murray % (Auto) 10.3 % Eos % (Auto) 2.4 % Baso % (Auto) 0.5 % Neut # (Auto) 4.22 (1.40-6.50) K/uL Lymph # (Auto) 2.27 (1.2-3.4) K/uL Murray # (Auto) 0.77 H (0.11-0.59) K/uL Eos # (Auto) 0.18 (0-0.50) K/uL Baso # (Auto) 0.04 (0-0.2) K/uL Immature Gran # (Auto) 0.02 (0.01-0.20) K/uL PT 10.7 (9.0-12.0) Seconds INR 1.0 (0.9-1.1) APTT 26.1 (21.0-31.0) Seconds PTT Ratio 0.9 Sodium 138 (136-145) mmol/L Potassium 4.5 (3.5-5.1) mmol/L Chloride 105 (98-107) mmol/L Carbon Dioxide 28 (21-32) mmol/L Anion Gap 5 (3-11) BUN 24 H (6-23) mg/dl Creatinine 1.31 (0.6-1.4) mg/dl Est Cr Clr Drug Dosing Not Reportable Est GFR ( Amer) 70.0 ml/min Est GFR (Non-Af Amer) 60.4 ml/min BUN/Creatinine Ratio 18.3 (10-20) Glucose 108 H (70-99(Fasting)) mg/dl Calcium 9.4 (8.5-10.1) mg/dl Phosphorus 4.2 (2.5-4.9) mg/dl Magnesium 2.2 (1.7-2.4) mg/dl Total Bilirubin 0.7 (0.2-1.0) mg/dl AST 19 (13-39) U/L ALT 18 (7-52) U/L Alkaline Phosphatase 88 (34-104) U/L Troponin I High Sens 25.4 H (0-20) pg/ml B-Natriuretic Peptide (0-100) pg/ml Total Protein 7.7 (6.0-8.3) gm/dl Albumin 4.3 (3.4-5.0) gm/dl Globulin 3.4 (2.5-4.0) gm/dl Albumin/Globulin Ratio 1.3 (0.9-2) SARS-CoV-2, RNA, NAAT (NEGATIVE) 12/19/22 12/19/22 Range/Units 15:46 18:38 WBC (4.8-10.8) K/ul RBC (4.70-6.10) M/uL Hgb (14.0-18.0) g/dl Hct (42.0-52.0) % MCV (80.0-100.0) fL MCH (25.0-34.0) pg MCHC (32.0-36.0) g/dL RDW Std Deviation (36.4-46.3) fL RDW Coeff of Deborah (11.5-14.5) % Plt Count (130-400) K/uL MPV (9.4-12.4) fL Immature Gran % (Auto) % Neut % (Auto) % Lymph % (Auto) % Murray % (Auto) % Eos % (Auto) % Baso % (Auto) % Neut # (Auto) (1.40-6.50) K/uL Lymph # (Auto) (1.2-3.4) K/uL Murray # (Auto) (0.11-0.59) K/uL Eos # (Auto) (0-0.50) K/uL Baso # (Auto) (0-0.2) K/uL Immature Gran # (Auto) (0.01-0.20) K/uL PT (9.0-12.0) Seconds INR (0.9-1.1) APTT (21.0-31.0) Seconds PTT Ratio Sodium (136-145) mmol/L Potassium (3.5-5.1) mmol/L Chloride (98-107) mmol/L Carbon Dioxide (21-32) mmol/L Anion Gap (3-11) BUN (6-23) mg/dl Creatinine (0.6-1.4) mg/dl Est Cr Clr Drug Dosing Est GFR ( Amer) ml/min Est GFR (Non-Af Amer) ml/min BUN/Creatinine Ratio (10-20) Glucose (70-99(Fasting)) mg/dl Calcium (8.5-10.1) mg/dl Phosphorus (2.5-4.9) mg/dl Magnesium (1.7-2.4) mg/dl Total Bilirubin (0.2-1.0) mg/dl AST (13-39) U/L ALT (7-52) U/L Alkaline Phosphatase (34-104) U/L Troponin I High Sens (0-20) pg/ml B-Natriuretic Peptide 472 H (0-100) pg/ml Total Protein (6.0-8.3) gm/dl Albumin (3.4-5.0) gm/dl Globulin (2.5-4.0) gm/dl Albumin/Globulin Ratio (0.9-2) SARS-CoV-2, RNA, NAAT NEGATIVE (NEGATIVE) Administered Medications Heparin Sodium/Dextrose (Heparin Sodium/Dextrose) 25,000 units in 500 mls @ 38 mls/hr IV .[id number] [facility]; Protocol Stop: 01/18/23 19:59 Last Admin: 12/19/22 20:05 Dose: 1,900 units/hr, 38 mls/hr Documented By: JONAH Co-signed By: CARMELITA Diltiazem HCl 125 mg/ Dextrose 125 mls @ 5 mls/hr IV .Q24H [facility]; Protocol Stop: 01/18/23 19:44 Last Admin: 12/19/22 20:03 Dose: 5 mg/hr, 5 mls/hr Documented By: RSRachelle Co-signed By: CARMELITA Discontinued Medications Diltiazem HCl (Diltiazem Hcl 5 Mg/Ml 5 Ml Vial) 20 mg IV NOW STA Stop: 12/19/22 19:25 Last Admin: 12/19/22 20:03 Dose: 20 mg Documented By: JONAH Co-signed By: CARMELITA Heparin Sodium (Porcine) (Heparin Sod (Porcine) 1000 Unit/Ml) 8,000 units IV NOW ONE Stop: 12/19/22 19:41 Last Admin: 12/19/22 20:04 Dose: 8,000 units Documented By: JONAH Co-signed By: CARMELITA Sodium Chloride (Nss) 500 mls @ 999 mls/hr IV .Q31M ONE Stop: 12/19/22 16:31 Last Infusion: 12/19/22 18:34 Dose: 0 mls/hr Documented By: Admin: 12/19/22 17:01 Dose: 999 mls/hr Documented By: JONAH Ioversol (Optiray 320 500ml) 111 ml IV ONCE ONE Stop: 12/19/22 17:13 Last Admin: 12/19/22 17:12 Dose: 111 ml Documented By: CHAVEZ Metoprolol Tartrate (Metoprolol Tartrate 1 Mg/Ml Vial) 5 mg IV NOW STA Stop: 12/19/22 18:34 Last Admin: 12/19/22 18:39 Dose: 5 mg Documented By: JONAH Metoprolol Tartrate (Metoprolol Tartrate 1 Mg/Ml Vial) 5 mg IV NOW STA Stop: 12/19/22 18:52 Last Admin: 12/19/22 19:05 Dose: 5 mg Documented By: JONAH Metoprolol Tartrate (Metoprolol Tartrate 1 Mg/Ml Vial) 5 mg IV NOW STA Stop: 12/19/22 19:11 Last Admin: 12/19/22 19:15 Dose: 5 mg Documented By: [facility] Imaging Data Radiologist's Impression: Chest X-Ray 12/19/22 15:05 XR chest 2V PA/lateral HISTORY: 57 years-old Male Chest pain, nonspecific acute chest pain COMPARISON: None TECHNIQUE: PA and lateral views of the chest FINDINGS: Cardiac silhouette is enlarged. Prior median sternotomy. No pneumothorax, large pleural effusion or overt pulmonary edema. Mild blunting of the costophrenic angles. Hyperinflation with diaphragmatic flattening. Degenerative changes of the shoulders and spine. IMPRESSION: Cardiomegaly without acute process. ACT 112: Negative or not required by law. The above report was generated using voice recognition software. It may contain grammatical, syntax or spelling errors. Electronically signed by: Mu Olivera M.D. 12/19/2022 3:34 PM Chest CTA 12/19/22 16:20 CHEST CTA for PULMONARY ARTERIES CT DOSE: 675.60 mGycm HISTORY: right sided cp, r/o PE TECHNIQUE: Multiaxial CT images of the chest were performed following the intravenous administration of contrast to evaluate the pulmonary arteries. Maximal intensity projection images were also obtained. A dose lowering technique was utilized adhering to the principles of ALARA. COMPARISON STUDY: None. FINDINGS: Limited views of the upper abdomen demonstrate a normal liver and spleen. No mediastinal or hilar lymphadenopathy. No pleural or pericardial effusions. The heart is mildly enlarged. Normal esophagus. Normal caliber thoracic aorta with no evidence for a dissection. No filling defects within the pulmonary arteries to suggest a pulmonary embolus. There are poststernotomy changes. No acute fractures identified. No pneumothorax. The central airways are patent. Calcified left hilar lymph node is noted. Peripheral scarlike densities are noted within the right lung base. Tiny subpleural nodular densities along the right major fissure are likely benign. No suspicious pulmonary nodules id entified. No focal lung consolidations to suggest a pneumonia. IMPRESSION: 1. No evidence for a pulmonary embolus. 2. No focal lung consolidations to suggest a pneumonia. 3. Peripheral scarlike densities seen within the right lung base. ACT 112: Negative or not required by law. Electronically signed by: Micah Chappell M.D. 12/19/2022 5:45 PM Discharge Plan Visit Data Chief Complaint: Cardiac Assessment Stated Complaint: HEART TROUBLES ED Provider: Jun Hopper Discharge Problem: Atrial flutter with rapid ventricular response, New onset atrial flutter, Elevated troponin, Coronary artery disease, Hypertension Forms Stand Alone Forms: [facility] Prescriptions Prescriptions: No Action atorvastatin 80 mg tablet 80 mg PO HS carvedilol 6.25 mg tablet 6.25 mg PO BID lisinopril 10 mg tablet 10 mg PO QAM aspirin 81 mg Tablet 81 mg PO QAM mupirocin 2 % ointment 1 applic TOPICAL UD PRN (Reason: psoriasis) betamethasone dipropionate 0.05 % ointment 1 applic TOPICAL UD PRN (Reason: psoriasis) Skyrizi 150 mg/mL syringe 150 mg SUBCUT Q90D ascorbic acid (vitamin C) 100 mg Tablet 100 mg PO 3XWK zinc gluconate [Zinc Natural] 100 mg Tablet 100 mg PO DAILY multivitamin [Multiple Vitamin] Tablet 1 tab PO DAILY furosemide 20 mg tablet 20 mg PO DAILY PRN (Reason: Shortness Of Breath) Referrals Referrals: Rupinder Knowles [Primary Care Provider] -
[2022-12-19] MEDS ORDERED: STAT IV Infusion **Titration per Protocol STA (19:24)
[2022-12-19] MEDS ORDERED: Heparin IV Adult Wt-Based Standard WITH Bolus Protocol IV STA (19:24)
[2022-12-19] MEDS ORDERED: dilTIAZem HCl 5 MG/ML 5 ML VIAL IV STA (19:24)
[2022-12-19] MEDS ORDERED: HEPARIN SOD (PORCINE) 1000 UNIT/ML IV ONE (19:40)
[2022-12-19] MEDS ORDERED: dilTIAZem HCL 125 MG in DEXTROSE 5% 100 ML IV SCH (19:45)
[2022-12-19] MEDS ORDERED: HEPARIN SODIUM/DEXTROSE 25,000 UNITS/500 ML BAG IV SCH (20:00)
[2022-12-19] MEDS ORDERED: ATORVASTATIN 40 MG TAB PO SCH (22:48)
[2022-12-19] MEDS ORDERED: ACETAMINOPHEN 325 MG TAB PO PRN (22:55)
[2022-12-19] MEDS: carvediloL 12.5 MG TAB PO SCH (23:15)
[2022-12-20 02:11] LABS: Basophils # (auto) 0.03 K/uL (0-0.2); Basophils % (auto) 0.4 %; Eosinophils # (auto) 0.19 K/uL (0-0.50); Eosinophils % (auto) 2.6 %; Hematocrit (blood only) 39.6 % (42.0-52.0); Hemoglobin 13.5 g/dl (14.0-18.0); Immature Granulocytes # (auto) 0.02 K/uL (0.01-0.20); Immature Granulocytes % (auto) 0.3 %; Lymphocytes # (auto) 2.68 K/uL (1.2-3.4); Lymphocytes % (auto) 37.3 %; Mean Corpuscular Hemoglobin 29.9 pg (25.0-34.0); Mean Corpuscular Hgb Conc 34.1 g/dL (32.0-36.0); Mean Corpuscular Volume 87.6 fL (80.0-100.0); Mean Platelet Volume 9.9 fL (9.4-12.4); Monocytes # (auto) 0.63 K/uL (0.11-0.59); Monocytes % (auto) 8.8 %; Neutrophils # (auto) 3.64 K/uL (1.40-6.50); Neutrophils % (auto) 50.6 %; Platelet Count 160 K/uL (130-400); RDW Coefficient of Variation 13.5 % (11.5-14.5); RDW Standard Deviation 42.4 fL (36.4-46.3); Red Blood Count 4.52 M/uL (4.70-6.10); White Blood Count 7.19 K/ul (4.8-10.8)
[2022-12-20 02:30] LABS: Calcium 8.9 mg/dl (8.5-10.1); Potassium 4.2 mmol/L (3.5-5.1)
[2022-12-20 02:35] LABS: Creatinine Clr Calc Pharmacy 78.7 ml/min; Est GFR (African American) 62.5 ml/min; Est GFR (Non-African American) 53.9 ml/min
[2022-12-20 02:38] LABS: Partial Thromboplastin Ratio 3.2
[2022-12-20 02:56] LABS: Thyroid Stimulating Hormone 7.661 uIu/ml (0.300-4.500)
[2022-12-20 03:28] LABS: T4 Free Thyroxine 0.71 ng/dl (0.61-1.60)
--- NOTE | 2022-12-20 08:21 | Electrocardiogram Report ---
Test Reason : Blood Pressure : / mmHG Vent. Rate : 142 BPM Atrial Rate : 284 BPM P-R Int : 000 ms QRS Dur : 094 ms QT Int : 264 ms P-R-T Axes : 077 049 188 degrees QTc Int : 406 ms Atrial flutter with variable A-V block with premature ventricular or aberrantly conducted complexes Incomplete right bundle branch block Abnormal ECG When compared with ECG of 19-DEC-2022 15:29, No significant change Confirmed by Kristopher Mazariegos ([id number]) on 12/20/2022 8:21:28 AM Referred By: REFERRED SELF Confirmed By:Kristopher Mazariegos
--- NOTE | 2022-12-20 08:21 | Electrocardiogram Report ---
Test Reason : Blood Pressure : / mmHG Vent. Rate : 148 BPM Atrial Rate : 148 BPM P-R Int : 154 ms QRS Dur : 098 ms QT Int : 242 ms P-R-T Axes : 072 042 208 degrees QTc Int : 379 ms Atrial flutter with premature ventricular or aberrantly conducted complexes Incomplete right bundle branch block Abnormal ECG No previous ECGs available Confirmed by Kristopher Mazariegos ([id number]) on 12/20/2022 8:20:52 AM Referred By: Confirmed By:Kristopher Mazariegos
--- NOTE | 2022-12-20 08:27 | Electrocardiogram Report ---
Test Reason : Blood Pressure : / mmHG Vent. Rate : 072 BPM Atrial Rate : 288 BPM P-R Int : 000 ms QRS Dur : 094 ms QT Int : 416 ms P-R-T Axes : 075 057 081 degrees QTc Int : 455 ms Poor data quality, interpretation may be adversely affected Atrial flutter with 4:1 A-V conduction Abnormal ECG When compared with ECG of 19-DEC-2022 18:21, Vent. rate has decreased BY 70 BPM Confirmed by Kristopher Mazariegos ([id number]) on 12/20/2022 8:26:48 AM Referred By: REFERRED SELF Confirmed By:Kristopher Mazariegos
[2022-12-20] MEDS ORDERED: WARFARIN SOD 5 MG TAB PO ONE ×2 (08:37→09:00)
--- NOTE | 2022-12-20 08:40 | Cardiology Consultation ---
Date of Consultation December 20, 2022 Assessment & Plan (1) Atrial flutter with rapid ventricular response: IMPRESSIONS: 1. Coronary disease status post coronary bypass grafting x5. 2. History of severe left ventricular dysfunction now with preserved LV function and wall motion abnormalities involving the basal inferior and inferior septal kaiser. 3. Perioperative CVA with residual left-sided weakness and concern for recurrent TIAs involving the right side as well as his suggests imaging in [place] suggested a prior stroke before his bypass surgery. 4. Chronic systolic heart failure. 5. Mild chronic kidney disease. 6. History of tobacco abuse, now abstaining. 7. Obesity. 8. Significant fatigue and daytime somnolence along with significant snoring consistent with sleep apnea, tolerating CPAP. 9. Plaque psoriasis. 10. Frequent PVCs upwards of 14,000 PVCs in a 24-hour period. 11. Negative stress echo for ischemia, 09/2020 with severe hypokinesis of the basal inferoseptal, and basal inferolateral kaiser at rest and with exercise consistent with scar. The rest of the myocardium became hypodynamic with exercise without evidence of ischemia and an EF in the range of 60%. His functional capacity was only 69% of predicted. 12. Afib and aflutter with RVR Mr. Wilcox is feeling better this morning and is mostly symptom free. He is still having some tingling in his left fingers. I would like him to get an MRI of his brain today given his left arm weakness/tingling. He does have a history of CVA. He will also be started on apixaban. His weight is just above the threshold for using a NOAC, however given that Coumadin has a high risk for bleeding and Mr. Wilcox may need a cardioversion or ablation, Eliquis will be easier to manage surrounding these procedures down the line. I discussed with him his risk on blood thinners including risk for bleeding. He would need to be evaluated if he hit his head. He should let us know is having having any black tarry stools or big bruises. He should continue with his 81 mg of aspirin daily. EKG this morning showed rate controlled atrial fibrillation. He had a marginally elevated troponin on admission likely secondary to demand ischemia from his rapid rate, no ischemic symptoms or chest discomfort today. He has very mild ST depressions in his anterolateral leads this morning on his EKG. I will have him get an echocardiogram in the clinic this week, but in the absence of ischemic symptoms his workup can be continued outpatient rather than inpatient. He should be discharged on the higher dose of Coreg - 12.5 mg bid. He should ambulate around the halls this morning and if his heart rate is staying stable and he is feeling well, he can be discharged. I will him follow- up with us closely in about a week or so. History of Present Illness Attending Physician: Yani Villa MD History of Present Illness Mr. Wilcox presented to the hospital yesterday for tingling in his hands. He does note that he has had chest pressure and some shortness of breath for the rest of the last week and a half. He thinks that this was incited by an allergic reaction he had to use something he ate that resulted in swelling in feeling like his throat got a little tight. He did not end up needing any medication for this and it resolved on its own. When he presented to the emergency department he was found to be in atrial flutter with RVR. He has been on a Cardizem drip over the night and then was segued to an increased dose of his Coreg today. He is rate controlled on the monitor. He does note some mild tingling in his ring and pinky finger on his left side and feeling like his hands are little puffy. Otherwise he was really not having any symptoms today. He has not had any chest pain or shortness of breath. He does not feel palpitations. Allergies Allergy/AdvReac Type Severity Reaction Status Date / Time No Known Allergies Allergy Verified 12/19/22 18:01 Home Medications Medication Instructions Recorded Confirmed Type aspirin 81 mg tablet 81 mg PO QAM 11/14/22 12/19/22 History atorvastatin 80 mg tablet 80 mg PO HS 11/14/22 12/19/22 History betamethasone dipropionate 0.05 % 1 applic topical UD PRN psoriasis 11/14/22 12/19/22 History topical ointment carvedilol 6.25 mg tablet 6.25 mg PO BID 11/14/22 12/19/22 History lisinopril 10 mg tablet 10 mg PO QAM 11/14/22 12/19/22 History mupirocin 2 % topical ointment 1 applic topical UD PRN psoriasis 11/14/22 12/19/22 History risankizumab-rzaa 150 mg/mL 150 mg subcut Q90D 11/14/22 12/19/22 History subcutaneous syringe (Skyradelinei) ascorbic acid (vitamin C) 100 mg 100 mg PO 3XWK 12/19/22 12/19/22 History tablet furosemide 20 mg tablet 20 mg PO DAILY PRN Shortness Of 12/19/22 12/19/22 History Breath multivitamin 1 tab PO DAILY 12/19/22 12/19/22 History zinc gluconate 100 mg tablet 100 mg PO DAILY 12/19/22 12/19/22 History Patient History Medical History Hx of psoriasis Hyperlipidemia Hypertension Myocardial Infarction 9 years ago, taken to hospital in [place]; f/u dr cunningham, marcial Sleep apnea cpap Surgical History Hx of CABG 9 years ago, quadruple bypass, [place] [facility]; f/u dr cunningham, cassi Hx of colonoscopy Social History Smoking Status: Former smoker Second Hand Exposure: No; Do You Dip or Chew Tobacco: No; Hx Alcohol Use: Yes Alcohol type: beer Hx Substance Use: No Preferred Language: Vietnamese Communication Ability: Effective Casino Host Required: No Beliefs That Will Affect Care: None Current Living Situation: Spouse Other Information That Helps Us Care for You: No Feels Safe at Home: Yes Safety Concerns: Feels Safe At This Time Assistive Devices: Glasses Review of Systems Review of Systems: All systems reviewed & are unremarkable except as noted in HPI & below Physical Exam Constitutional: WD/WN, vitals as above Respiratory: normal respiratory effort, lungs clear to auscultation Cardiovascular: Rate/Rhythm: + abnormal rate and + abnormal rhythm Heart Sounds: normal S1 and normal S2 Extremities: + edema (hands, no edema LE) Skin: no rashes, warm and dry Neurologic: CN II - XII intact, no drift, mild decreased strength left hand, no drift Psychiatric: A+Ox3, euthymic affect Results & Data ([facility]) Vital Signs (Past 12 Hours) Vital Signs Temp Pulse Pulse Resp BP Pulse Ox O2 Del Method 12/20/22 08:12 36.6 C 62 17 115/75 97 Room Air 02/10/23 08:10 70 12/20/22 03:32 36.7 C 69 18 106/65 97 Room Air 12/19/22 23:57 71 17 95 12/19/22 23:41 CPAP 12/19/22 22:52 36.8 C 65 20 132/94 96 Room Air 12/19/22 22:00 74 20 143/92 H 94 Room Air 12/19/22 21:00 78 20 156/93 H 94 Room Air O2 Flow Rate FiO2 12/20/22 08:12 12/20/22 08:10 12/20/22 03:32 12/19/22 23:57 0 21 12/19/22 23:41 12/19/22 22:52 12/19/22 22:00 12/19/22 21:00
[2022-12-20] MEDS ORDERED: MULTIVITAMIN TAB PO SCH (09:00)
[2022-12-20] MEDS ORDERED: lisinopril 10 MG TAB PO SCH (09:00)
[2022-12-20] MEDS ORDERED: ASPIRIN 81 MG ECTAB PO SCH (09:00)
[2022-12-20] MEDS ORDERED: HEPARIN STOP ORDER ONE (09:15)
--- NOTE | 2022-12-20 10:23 | Discharge Summary ---
Discharge Summary Date of Service December 20, 2022 Notes For Next Care Provider Medication Changes From Visit see attestation Admission HPI Per Admitting Provider Lalo Wilcox is a 57 year old male with coronary artery disease with history of CABG who presents to the ER with 3 week history of intermittent right-sided chest pain. He reports his chest pain started 3 weeks ago lasting for the entire day but better the following day, no worse on exertion, worse on certain movements. It has occurred intermittently 4 or 5 times since then, again lasting for hours. Characteristic of occasional spasms. No diaphoresis or nausea. He reports associated shortness of breath over the last 3 weeks although also notes worsening shortness of breath on exertion over the last year especially while walking upstairs. He also notes an odd sensation of neck swelling and having a hard time breathing over the weekend with associated arm numbness. This improved after a couple of hours and he managed to go to sleep and believes it brought on by food he had eaten previous that day. This sensation has now completely resolved. He also describes bilateral tingling in both extremities and a ulnar nerve distal to his elbow. Never had this sensation before but also appears to be separate from recent chest pain. His convinced him to go to his PCP office today and EKG in the office was concerning for sinus tachycardia with PVCs and possible STEMI therefore he was sent to the ER. In the ER EKG and telemetry is more consistent with an atrial flutter. He was given x1 dose of metoprolol 5 mg IV prior to being seen without significant improvement in his heart rate. Admission Exam Per Admitting Provider Constitutional: WD/WN, vitals as above Respiratory: normal respiratory effort, lungs clear to auscultation Cardiovascular: Rate/Rhythm: regular rhythm and + tachycardic Heart Sounds: no murmur Extremities: normal capillary refill and + pedal edema (1+ b/l edema); no calf tenderness Gastrointestinal (Abdomen): normal bowel sounds, soft, nontender, no hepatosplenomegaly Skin: no rashes, warm and dry Neurologic: moves all extremities and awake; not confused Motor/Sensory: + sensory deficit (Mild bilateral ulnar distribution numbness from the wrist) Psychiatric: A+Ox3, euthymic affect Principal Dx & Hospital Course #1 = Principal Diagnosis (1) Hypertension: (2) Coronary artery disease: (3) Cubital tunnel syndrome of both upper extremities: (4) Atrial flutter with rapid ventricular response: Plan 57 yo male history of cabg x5 2013, Brain Aneurysm, TIAs, HLD, HTN presents for right sided rib pain and afib rvr. 3 weeks ago pt got this with activity at work and this repeated several times a week until presentation. 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 On presentation pt EKG showed aflutter RVR. Given metoprolol tartrate and then diltiazem IV. Heparin iv gtt and NPO over night. CTA was negative for PE. XR chest showed cardiomegaly. EKG now showing afib rate controlled today. Pt tolerated walking without lightheadedness, palpitations, sob. MRI ordered and did not show acute changes (see plan). Today he feels okay, no lightheadedness, chest pain, sob, fever, n/v/d. (1) Atrial flutter with rapid ventricular response: Possible exacerbated due to food poisoning illness over the weekend which appears to have self resolved. -[id number] - 3, start eliquis after discharge 5 mg bid TTE: not done, will follow up with cardiology one week Cardiology: apixaban 5mg bid; start tonight at desired time (2) Cubital tunnel syndrome of both upper extremities: Very well-defined ulnar distribution nerve entrapment at his elbow described by the patient. However, negative tinels test at the elbow and media nerve at wrist, tingling in 4-5th digit more than 2-3rd digit. 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 However due to history of TIA and brain aneurysm, MRI ordered. -follow up with primary care; consider nerve conduction test. -MRI findings: 1. No acute infarct or intracranial hemorrhage. 2. A few scattered punctate foci of demyelination within the periventricular white matter the supratentorial brain. These are nonspecific but favor microvascular ischemic change. 3. Trace right and small left mastoid effusions. (3) Coronary artery disease: s/p CABG x5 in 2013 Continue aspirin 81 qam, carvedilol 12.5 bid lisinopril: 10mg daily atorvastatin 80 mg daily Shortness of breath (chronic) This may be related to heart failure symptoms given elevated BNP 500. Pt may be taking in too much salt as well. Heavy breathing after exerting himself walking up stairs. This could also be due to obesity hypoventilation syndrome. -follow up cardiology: consider TTE reevaluation (4) Hypertension: Continue carvedilol 12.5 mg po daily, lisinopril 10 mg p.o. daily Lasix 20mg po prn (5) Sleep apnea -CPAP at night -Consider changing masks of CPAP due to comfort problems; follow up with Primary Care (6) Hx of psoriasis: -Managed with Kalyan (7) Hyperlipidemia: Plan: Continue atorvastatin as above (8) Low TSH -TSH: subclinical at 7.6, normal t4 -follow up outpatient Plan VTE Prophylaxis - scds Diet - heart healthy Disposition - discharge Discharge Exam well appearing no acute distress Respiratory normal respiratory effort, lungs clear to auscultation Cardiovascular RRR, no murmur, no edema no carotid bruits, symmetric radial pulse, no leg edema Neurologic PERRL, EOMI, accommodation nl, no face palsy, no dysarthria CN's II-XI intact bilaterally Speech / Cognition: normal speech Motor/Sensory: tingling of 4/5th digit bilaterally with some tingling is 2/3rd digit; 5/5 strength for wrist flexion/extension, biceps, triceps, abduction arm and adduction of arm. Gait: normal Updated Medication List Medication Instructions Recorded Confirmed Type aspirin 81 mg tablet 81 mg PO QAM 11/14/22 12/19/22 History atorvastatin 80 mg tablet 80 mg PO HS 11/14/22 12/19/22 History betamethasone dipropionate 0.05 % 1 applic topical UD PRN psoriasis 11/14/22 12/19/22 History topical ointment lisinopril 10 mg tablet 10 mg PO QAM 11/14/22 12/19/22 History mupirocin 2 % topical ointment 1 applic topical UD PRN psoriasis 11/14/22 12/19/22 History risankizumab-rzaa 150 mg/mL 150 mg subcut Q90D 11/14/22 12/19/22 History subcutaneous syringe (Kalyan) ascorbic acid (vitamin C) 100 mg 100 mg PO 3XWK 12/19/22 12/19/22 History tablet furosemide 20 mg tablet 20 mg PO DAILY PRN Shortness Of 12/19/22 12/19/22 History Breath multivitamin 1 tab PO DAILY 12/19/22 12/19/22 History zinc gluconate 100 mg tablet 100 mg PO DAILY 12/19/22 12/19/22 History apixaban 5 mg tablet (Eliquis) 5 mg PO BID #60 tabs 12/20/22 Rx carvedilol 12.5 mg tablet 12.5 mg PO BID #60 tabs 12/20/22 Rx Hospital Stay Data Consultations 12/19/22 18:34 ED Decision to Admit Stat 12/19/22 22:48 Consult Cardiology Routine Diagnostic Imagining Performed 12/19/22 16:20 CT angio chest PE protocol Stat 12/20/22 08:34 MRI Brain [MR brain wo con] Urgent Discharge Instructions Given to Patient (Per Discharging Provider) You were admitted to the hospital for a fast heart rate associated with an abnormal heart rhythm (atrial flutter and atrial fibrillation). You were treated with medications to slow your heart rate including metoprolol, carvedilol, and diltiazem. Your heart rate was controlled with these medications. An MRI of your brain was also performed due to the tingling in your hands. It did not show any signs of acute stroke, but did show some fdc blood vessel changes. A discharge summary will be sent to your primary care physician to ensure continuity of care. Please bring this discharge summary with you to your next office appointment so that your provider can review it at that time. Medications: Your medication list has been reviewed and reconciled upon discharge to ensure accuracy and continuity of care. An updated list of all your medications is included with your hospital discharge paperwork. Please review this list closely and make note of any changes to your medications. - Your carvedilol dose should be doubled to 12.5 mg twice per day. A new script has been sent to your pharmacy. - You have been started on a blood thinning medication called eliquis. This will be 5 mg twice per day. - Continue your other medications as before. Follow up appointments: - Make a follow up appointment with your PCP within the next week. It is very important that you follow up with them shortly after discharge from the hospital. - You should follow up with your configuration management administrator within 1 week of discharge. - Keep all of your follow up appointments as already scheduled. If you cannot make an appointment, notify your provider. CONTACT YOUR PRIMARY CARE PROVIDER if you experience any of the following: - Difficulty following your treatment plan - Difficulty taking any of your medications CALL 911 OR GO TO THE EMERGENCY DEPARTMENT if you experience any of the following: - Sudden, severe abdominal pain or nausea/vomiting - Severe chest pain or chest pain that radiates to your jaw or arm - Sudden, severe shortness of breath or difficulty breathing Total Time Total Time Spent Total Time Spent (In Minutes): see attestation Supervising Physician Co-Signing Physician Notes Medical Student Supervision Note: I was personally present during medical student patient encounter and independently interviewed and examined the patient and verified the marie history and physical, reviewed labs and image studies, discussed the case with Rudy Cortes and agree with the findings and care plan. 57 yo M with CAD s/p CABG, Brain Aneurysm, TIAs, HLD, HTN came with right sided chest pain and noted to be in rapid a flutter in the ED. Denied any chest pain, shortness of breath before discharge. ambulated and had no dizziness. o/e - comfortable. ambulating well. heart- regular, no resp distress AAOx3 --Rapid A flutter He received metoprolol tartrate and then diltiazem IV and also started on Heparin iv gtt for anticoagulation due to elevated chads score. Evaluated by cardio and sent home with eliquis increased dose of coreg. --Hand numbness- Neg work up for stroke. further outpatient evaluation. --Elevated TSH 7.6 Outpatient recheck
[2022-12-20] MEDS ORDERED: APIXABAN 5 MG TABLET PO SCH (10:30)
--- NOTE | 2022-12-20 10:35 | Magnetic Resonance Report ---
Brain MRI WITHOUT CONTRAST HISTORY: Bilateral hand paresthesias. r/o stroke TECHNIQUE: Multiplanar multisequence MRI of the brain was performed without the use of contrast. COMPARISON STUDY: None. FINDINGS: No areas restricted diffusion to suggest acute infarction. The midline structures are intac t. There is mild mucosal thickening within the ethmoid air cells and maxillary sinuses. Trace right a nd small left mastoid effusions are noted. The major vascular flow-voids at the skull base are well-m aintained. The ventricles and sulci are within normal limits for age. There is no mass, hematoma, mid line shift. The there are few scattered punctate foci of T2 hyperintensity seen within the periventri cular white matter of the supratentorial brain. These are nonspecific but favor mild microvascular is chemic change given the patient's age. IMPRESSION: 1. No acute infarct or intracranial hemorrhage. 2. A few scattered punctate foci of demyelination within the periventricular white matter the suprate ntorial brain. These are nonspecific but favor microvascular ischemic change. 3. Trace right and small left mastoid effusions. ACT 112: Negative or not required by law. Electronically signed by: Micah Chappell M.D. 12/20/2022 10:33 AM
[2022-12-20] MEDS: carvediloL 12.5 MG TAB PO SCH (10:49)
--- NOTE | 2022-12-20 11:10 | Electrocardiogram Report ---
Test Reason : Blood Pressure : / mmHG Vent. Rate : 070 BPM Atrial Rate : 357 BPM P-R Int : 000 ms QRS Dur : 096 ms QT Int : 412 ms P-R-T Axes : 000 049 092 degrees QTc Int : 444 ms Atrial flutter with premature ventricular or aberrantly conducted complexes Diffuse Nonspecific T wave abnormality Abnormal ECG When compared with ECG of 19-DEC-2022 21:10, No significant change Confirmed by Kristopher Mazariegos ([id number]) on 12/20/2022 11:10:24 AM Referred By: REFERRED SELF Confirmed By:Kristopher Mazariegos
== END 2022-12-20 13:43 | disposition home or self-care (01) | DRG 309 ==
LOC: ED 14:52 → 4W 19:33 → SUATTDRO 19:33 → 4W 22:47
DX: I48.92 Unspecified atrial flutter; R20.0 Anesthesia of skin; R06.02 Shortness of breath; Z87.891 Personal history of nicotine dependence; Z95.1 Presence of aortocoronary bypass graft; E78.5 Hyperlipidemia, unspecified; I11.0 Hypertensive heart disease with heart failure; I50.22 Chronic systolic (congestive) heart failure; I69.354 Hemiplegia and hemiparesis following cerebral infarction affecting left non-dominant side; L40.9 Psoriasis, unspecified; I25.10 Atherosclerotic heart disease of native coronary artery without angina pectoris; I25.2 Old myocardial infarction; R77.8 Other specified abnormalities of plasma proteins; G56.23 Lesion of ulnar nerve, bilateral upper limbs; I44.30 Unspecified atrioventricular block